=== PATIENT | male | born 1995 | race Caucasian/White ===

== ENCOUNTER 2018-12-25 18:40 | Emergency (ER) | payer OTHER ==
[~2018-12-25] VITALS: Ht 172.7 cm; Wt 69.2 kg
[2018-12-25 19:15] VITALS: Ht 172.7 cm; Wt 69.2 kg
[2018-12-25] MEDS ORDERED: ACETAMINOPHEN 500 MG TAB PO STA (21:39)
--- NOTE | 2018-12-25 22:02 | ERD ---
ER Documentation Chief Complaint Chief Complaint FLU-LIKE S/; COUGH X4DAYS HPI 23-year-old male is here with flulike symptoms including fever body aches chills cough and sore throat. Symptoms have been going on for 4 days. He took Tylenol earlier this afternoon but none since. No nausea or vomiting. ROS All systems reviewed and are negative except as per history of present illness. PMhx/Soc Medical and Surgical Hx: pt denies Medical Hx, pt denies Surgical Hx Hx Alcohol Use: No Hx Substance Use: No Hx Tobacco Use: No Smoking Status: Never smoker FmHx Family History: No diabetes Physical Exam Vitals Vital Signs Date Temp Pulse Resp B/P (MAP) Pulse Ox O2 O2 Flow FiO2 Time Delivery Rate 12/25/18 100.8 21:52 12/25/18 101.7 117 19 136/81 98 19:15 (99) Physical Exam INITIAL VITAL SIGNS: Reviewed by me GENERAL: Awake, alert and oriented x 4, well appearing, nontoxic, speaking in full sentences. No acute distress HEAD: Atraumatic NECK: Supple. No masses. Full range of motion. No meningismus. No midline tenderness. EYES: EOMI. PERRL. EAR: No tenderness over the mastoids bilaterally. No exudates in the canals. TMs nonerythematous. NOSE: Normal nose. THROAT: No tonilar erythema or edema. No exudates. Uvula midline. No kissing tonsils. RESPIRATORY: Clear to auscultation bilaterally. Symmetric chest wall rise. No wheezing or rales. No accessory muscle use. CV: Regular rate and rhythm. No murmurs, rubs, or gallops. ABDOMEN: Soft, non-distended. Nontender. Negative [place]. Negative [place]neys point tenderness. No CVA tenderness bilaterally. No guarding. No rebound. Results 24 hrs Current Medications Medications Dose Sig/Rory Start Time Status Last (Trade) Ordered Route PRN Stop Time Admin Dose Reason Admin 1,000 mg ONCE STAT 12/25/18 DC 12/25/18 Acetaminophen PO 21:39 21:52 (Tylenol 12/25/18 21:40 Tab) Procedures/MDM Patient presents with flulike symptoms. He does have a fever and was given Tylenol here. He is outside of the therapeutic window for Tamiflu. This is likely viral. Low suspicion for pneumonia or strep throat. Patient was discharged with prescriptions for Tylenol and Motrin and cough syrup. Patient counseled regarding my diagnostic impression and care plan. Prior to discharge all questions answered. Pt agrees with treatment plan and understands strict return precautions. Pt is instructed to follow up with primary care provider within 24-48 hours. Precautionary instructions provided including instructions to return to the ER if not improving or for any worsening or changing symptoms or concerns. Departure Diagnosis: Primary Impression: Influenza-like symptoms Condition: Stable NASREEN NERI PA-C Dec 25, 2018 22:02
[2018-12-25] MEDS ORDERED: PROM5SYR2 PO (22:03)
[2018-12-25] MEDS ORDERED: IBUP-1542 PO (22:03)
[2018-12-25] MEDS ORDERED: ACET500C5 PO (22:03)
[2018-12-25 22:12] VITALS: BP 132/80; PULSE 101; RESP 18
== END 2018-12-25 22:15 | disposition home or self-care (01) ==
LOC: FTE 18:40
DX: J02.9 Acute pharyngitis, unspecified (principal)
CPT/HCPCS: 99283